=== PATIENT | female | born 1990 | race Caucasian/White ===

== ENCOUNTER 2024-05-26 01:09 | Emergency (ER) | payer MEDICAID, SELFPAY ==
[2024-05-26 01:23] VITALS: BP 126/75; PULSE 70; O2SAT 100
[2024-05-26 01:26] VITALS: BP 124/80; PULSE 83; RESP 16; TEMP 36.9; O2SAT 100; BMI 20.6
[2024-05-26 02:38] LABS: MANUAL DIFF FLAG NO
[2024-05-26 02:39] LABS: Basophils Percent Auto 0.2 % (0-2); Eosinophils Percent Auto 0.2 % (0-4); Hematocrit 38.7 % (37.0-47.0); Hemoglobin 13.2 g/dl (12.0-16.0); Imm Gran Abs Auto 0.03 X10*3/uL (0.00-0.03); Imm Gran Pct Auto 0.2 % (0.0-0.4); Lymphocytes Absolute Auto 1.9 X10*3/uL (1.2-4.9); Lymphocytes Percent Auto 14.7 % (20-40); Mean Corpuscular HGB Conc 34.1 g/dl (31.0-35.0); Mean Corpuscular Hemoglobin 31.4 pg (27.0-33.0); Mean Corpuscular Volume 91.9 fL (80.0-98.0); Mean Platelet Volume 9.2 fL (9.4-12.3); Monocytes Absolute Auto 0.8 X10*3/uL (0.1-1.2); Monocytes Percent Auto 6.4 % (2-11); Neutrophils Percent Auto 78.3 % (45-73); Platelet Count 261 X10*3/uL (160-400); Red Blood Count 4.21 X10*6/uL (4.20-5.50); Red Cell Distribution Width 14.6 % (11.0-16.0); White Blood Count 12.7 X10*3/uL (4.8-10.8)
[2024-05-26 02:52] LABS: Anion Gap 16 (12-20); Blood Urea Nitrogen 13 mg/dL (9-16); Calcium 9.9 mg/dL (8.4-10.2); Carbon Dioxide 25 mmol/L (22-29); Chloride 104 mmol/L (96-108); Creatinine Clr Calc Pharmacy 75.7; Estimated Glomerular Filt Rate > 60; Glucose Random 136 mg/dL (60-115); Potassium 3.8 mmol/L (3.3-5.1); Sodium 141 mmol/L (135-145)
--- NOTE | 2024-05-26 04:10 | ED_ITS ---
HPI - Psych General Chief Complaint: General Medical Stated Complaint: Dischagred from [facility] wants refill on med Time Seen by Provider: 05/26/24 04:01 Source: patient, EMS and old records reviewed Mode of arrival: EMS Limitations: other (poor historian) History of Present Illness ED Provider: ALFONZO HPI Narrative: 33 you female who reports hx of memory issues due to prior CVA, HTN, mental health issues was just treated and released from [facility] and states she was transported to the living room. She had to leave in the AM and then has nowhere to go doesn't know where she is. I am from far away. She denies SI/HI. But states she is unsafe. MD complaint: feels depressed and anxiety Onset (ago): day(s) (1) Duration: constant History of same: Yes Relieving factors: none Exacerbating factors: other Context: significant life stressor Associated psychiatric symptoms: depression Associated symptoms: denies other symptoms Treatments prior to arrival: none Related Data Allergies Allergy/AdvReac Type Severity Reaction Status Date / Time lamotrigine [From Lamictal] Allergy Rash Verified 05/26/24 01:35 promethazine [From Phenergan] Allergy Hives Verified 05/26/24 01:35 Sulfa (Sulfonamide Allergy Hives Verified 05/26/24 01:35 Antibiotics) Review of Systems 2 Review of Systems: Constitutional : No Fever, No Chills ENT/Mouth : No Ear Pain, No Nasal Congestion, No sore throat Eyes: No Eye Pain, No Swelling, No Redness Cardiovascular : No Chest Pain, No SOB Respiratory : No Cough, No Sputum, No Dyspnea Gastrointestinal : No Nausea, No Vomiting, No Diarrhea, No Hematochezia, No Melena Genitourinary : No Dysuria, No Urinary Frequency, No Hematuria Musculoskeletal : No Myalgias Skin : No Skin Lesions, No rash Neuro : No Weakness, No Numbness, No Paresthesias, No Dizziness, No Headache Psych : positive Anxiety, positive Depression, no SI/HI All other systems reviewed and are negative [facility] Past Medical History Attestation statement: The following information was validated with the patient. Medical History Depression Anxiety HTN (hypertension) Social History Social History (Updated 05/26/24 @ 05:32 by Aleta Jacob DO) Patient Tobacco Use Status: Current someday Tobacco user Smoked in Last 30 Days: Yes Use of substances other than those prescribed or required for medical reasons: Yes Substance Use Type: Crack/Cocaine and Marijuana Advance Directives: No Advance Directives Information Provided: Yes Do you have a plan to hurt others: No Plan Patient : No Physical Exam 2 Vital Signs: Vital Signs: Last Vital Signs Temp 98.1 F 05/26/24 06:19 Pulse 80 05/26/24 06:19 Resp 18 05/26/24 06:19 BP 115/64 05/26/24 06:19 Pulse Ox 98 05/26/24 06:19 O2 Del Method Room Air 05/26/24 06:19 BMI result Body Mass Index 20.6 Appearance: Alert. Oriented X3. No acute distress. Eyes: Pupils equal, round and reactive to light. ENT: Pharynx normal. Neck: Normal inspection. Neck supple. CVS: Normal heart rate and rhythm. Pulses normal. Respiratory: No respiratory distress. Breath sounds normal. Abdomen: Soft and nontender. Skin: Skin warm and dry. Normal skin color. Normal skin turgor. Extremities: No lower extremity edema. No calf ttp Neuro: Oriented X 3. No motor deficit. No sensory deficit. CN2-12 intact Medications Administered Discontinued Medications Generic Name Dose Route Start Last Admin Trade Name Jonah PRN Reason Stop Dose Admin Acetaminophen 975 mg 05/26/24 10:47 05/26/24 11:10 Acetaminophen 325 Mg Tablet PO 05/26/24 10:48 975 mg ONCE ONE Administration Nicotine 14 mg 05/26/24 07:16 05/26/24 07:26 Nicotine 14 Mg Patch.Td24 TRANSDERMA 05/26/24 07:17 14 mg ONCE ONE Administration Medical Decision Making Medical Decision Making MDM Narrative: 33 you female who reports hx of memory issues due to prior CVA, HTN, mental health issues here with c/o unsafe DC from [facility]. At this time the patient denies any medical complaints will need labs, CARE team consult - she is voluntary Differential Diagnosis Differential Diagnoses: The differential diagnosis associated with the presentation includes homelessness, drug use, unsafe dc planning form prior facility Admission/Observation Consideration of admission/observation: Escalation of care including admission/observation considered physician observation started at 530am pending CARE team observation care revealed that the patient does meet psychiatric necessity for hospitalization. final disposition discussed with the patient. The patient completed observation care at 1238pm to go back to [facility] Healthcare Provider Management of the patient was discussed with: Behavioral Health Provider Lab Data [facility] Lab Attestation statement: I reviewed the patient's lab results. 05/26/24 02:35 05/26/24 02:35 Labs: Lab Results 05/26/24 05/26/24 05/26/24 Range/Units 02:35 06:14 06:15 WBC 12.7 H (4.8-10.8) X10*3/uL RBC 4.21 (4.20-5.50) X10*6/uL Hgb 13.2 (12.0-16.0) g/dl Hct 38.7 (37.0-47.0) % MCV 91.9 (80.0-98.0) fL MCH 31.4 (27.0-33.0) pg MCHC 34.1 (31.0-35.0) g/dl RDW 14.6 (11.0-16.0) % Plt Count 261 (160-400) X10*3/uL MPV 9.2 L (9.4-12.3) fL Immature Gran % (Auto) 0.2 (0.0-0.4) % Neut % (Auto) 78.3 H (45-73) % Lymph % (Auto) 14.7 L (20-40) % [place] % (Auto) 6.4 (2-11) % Eos % (Auto) 0.2 (0-4) % Baso % (Auto) 0.2 (0-2) % Lymph # (Auto) 1.9 (1.2-4.9) X10*3/uL [place] # (Auto) 0.8 (0.1-1.2) X10*3/uL Eos # (Auto) 0.0 (0.0-0.4) X10*3/uL Baso # (Auto) 0.0 (0.0-0.2) X10*3/uL Abs Immat Gran (auto) 0.03 (0.00-0.03) X10*3/uL Absolute Neuts (auto) 10.0 H (2.0-8.3) x10*3/uL Absolute Nucleated RBC 0.000 (0.0-0.012) X10*3/uL Nucleated RBC % (auto) 0.0 (0.0-0.2) /100WBC Sodium 141 (135-145) mmol/L Potassium 3.8 (3.3-5.1) mmol/L Chloride 104 (96-108) mmol/L Carbon Dioxide 25 (22-29) mmol/L Anion Gap 16 (12-20) BUN 13 (9-16) mg/dL Creatinine 0.67 (0.5-1.4) mg/dL Estim Creat Clear Calc 75.7 Estimated GFR > 60 Random Glucose 136 H (60-115) mg/dL Calcium 9.9 (8.4-10.2) mg/dL Total Bilirubin 0.4 (0.0-1.0) mg/dL Direct Bilirubin 0.1 (0.0-0.5) mg/dL AST 24 (5-31) U/L ALT 31 (0-31) U/L Alkaline Phosphatase 76 (39-117) U/L Total Protein 7.4 (6.5-8.0) g/dL Albumin 4.6 (3.5-5.0) g/dL Urine Color Yellow Urine Appearance Cloudy Urine pH 5.5 (5.0-9.0) Ur Specific [place] >= 1.030 H (1.005-1.025) Urine Protein Trace (Neg-Trace) mg/dL Urine Glucose (UA) Negative (Negative) mg/dL Urine Ketones Trace (Negative) mg/dL Urine Blood Moderate (2+) H (Negative) Urine Nitrite Negative (Negative) Ur Leukocyte Esterase Trace H (Negative) Urine RBC 11-20 H (0-2) /HPF Urine WBC 6-10 H (0-5) /HPF Ur Squamous Epith Cells >20 (0-2) /HPF Urine Bacteria 1+ (None Seen) Hyaline Casts 0-2 (0-2) /LPF Urine Test NEGATIVE (NEGATIVE) Urine Opiates Screen Not Detected (Not Detect) Ur Buprenorphine Scrn Not Detected (Not Detect) ng/mL Ur Oxycodone Screen Not Detected (Not Detect) ng/mL Urine Methadone Screen Not Detected (Not Detect) ng/mL Urine Fentanyl Screen Not Detected (Not Detect) Ur Barbiturates Screen Not Detected (Not Detect) Ur Phencyclidine Scrn Not Detected (Not Detect) Ur Amphetamines Screen Not Detected (Not Detect) U Benzodiazepines Scrn POSITIVE H (Not Detect) Urine Cocaine Screen POSITIVE H (Not Detect) U Marijuana (THC) Screen POSITIVE H (Not Detect) Ethyl Alcohol < 10 mg/dL Discharge Plan Discharge Clinical Impression: Anxiety Patient Disposition: Xfer Psychiatric Hosp Transfer Details: [facility] Instructions: Anxiety (ED) Additional Instructions: please follow up with outpatient care as planned return for any worsening symptoms or concerns. Print Language: German
[2024-05-26 04:47] LABS: Alanine Aminotransferase 31 U/L (0-31); Albumin Level 4.6 g/dL (3.5-5.0); Alkaline Phosphatase 76 U/L (39-117); Aspartate Amino Transferase 24 U/L (5-31); Bilirubin Direct 0.1 mg/dL (0.0-0.5); Bilirubin Total 0.4 mg/dL (0.0-1.0); Ethanol < 10 mg/dL; Total Protein 7.4 g/dL (6.5-8.0)
--- NOTE | 2024-05-26 06:04 | PC.NURSE ---
Pt denies SI/HI. Pt changed over to hospital attire. Belongings in shelf 2.
[2024-05-26 06:19] VITALS: BP 115/64; PULSE 80; RESP 18; TEMP 36.7; O2SAT 98
--- NOTE | 2024-05-26 06:19 | MHC.EDTECH ---
Patient was changed into hospital attire,belongings list completed,copy placed in chart,security at bedside,all belongings locked in the closet on shelf 2,patient ambulated with a steady gait to the bathroom,urine sample collected and sent to lab.
[2024-05-26 06:21] LABS: Appearance Urine Cloudy; Color Urine Yellow; Glucose Urine UA Negative (Negative); Leukocyte Esterase Urine Trace (Negative); Nitrite Urine Negative (Negative); PH 5.5 (5.0-9.0); Specific Gravity - Urine >= 1.030 (1.005-1.025); UMIC TRIGGER UACC YES; Urine Blood Moderate (2+) (Negative); Urine Ketones Trace mg/dL (Negative); Urine Protein Trace mg/dL (Neg-Trace)
[2024-05-26 06:26] LABS: Bacteria Urine 1+ (None Seen); Hyaline Casts Urine 0-2 /LPF (0-2); Squamous Epithelial Cell Urine >20 /HPF (0-2); UACC Culture Trigger YES
[2024-05-26 06:27] LABS: UPreg QC Valid YES; Urine Pregnancy NEGATIVE (NEGATIVE)
[2024-05-26 06:31] LABS: Amphetamine Screen Urine Not Detected (Not Detect); Barbiturates, Urine Not Detected (Not Detect); Benzodiazepines Screen Urine POSITIVE (Not Detect); Buprenorphine Scr Not Detected (Not Detect); Cannabinoid Screen Urine POSITIVE (Not Detect); Cocaine Screen Urine POSITIVE (Not Detect); Fentanyl, urine Not Detected (Not Detect); Methadone Screen, Urine Not Detected (Not Detect); Opiate Screen Urine Not Detected (Not Detect); Oxycodone Screen Urine Not Detected (Not Detect); Phencyclidine Screen Urine Not Detected (Not Detect)
[2024-05-26] MEDS: Nicotine 14 MG PATCH.TD24 TRANSDERMA (07:26)
--- NOTE | 2024-05-26 07:28 | PC.NURSE ---
provider originally ordered 21mg nicotine via transdermal. pt originally refused stating, I can't take this - it's too much and i'm going to overdose. when asking pt how much she smokes per day, she states, it depends on the day. provider notified/aware. 14mg patch applied to RUE. pt otherwise continues to rest in no apparent distress. waiting on CARE team consult. no sob/wob noted. respirations even/unlabored. plan of care ongoing.
--- NOTE | 2024-05-26 09:09 | PC.NURSE ---
pt speaking w/ care team at this time.
--- NOTE | 2024-05-26 10:00 | MHC.EDTECH ---
this tech assumed care of pt at 0700, pt was provided a tray with food, pt ate 100% and is resting comfortably, no apparent distress at this time
--- NOTE | 2024-05-26 10:02 | PC.NURSE ---
report given to FABRICIO Jimenez at [facility] at this time. pt notified/aware of plan of care. ETA for transportation unknown.
[2024-05-26] MEDS: Acetaminophen 325 MG TABLET 975 MG PO (11:10)
--- NOTE | 2024-05-26 11:13 | PC.NURSE ---
pt c/o generalized LLE pain at this time - requesting tylenol. pt medicated per provider order. effectiveness pending.
[2024-05-26] MEDS: Nicotine Polacrilex 2 MG GUM BUCCAL ×2 (13:15→15:23)
--- NOTE | 2024-05-26 13:38 | MHC.CARE ---
Addendum entered by Viviane Decker 05/26/24 13:42: The accepting provider is Dr. Blackburn. Original Note: Pt was accepted to [facility] for today 05/26/24. ETA is JIMENEZ. The accepting provider is Dr. Remedios Kaufman and the address is [address] [place] [address]. Nurse to nurse was already complete. ED RN and CARE team have been notified of placement.
[2024-05-26 14:46] VITALS: BP 113/74; PULSE 76; RESP 18; TEMP 36.7; O2SAT 100
--- NOTE | 2024-05-26 15:26 | PC.NURSE ---
pt requesting nicotine gum. prn medication utilized. pt continues to wait for transport via S to [facility] at this time. plan of care ongoing.
--- NOTE | 2024-05-26 16:19 | PC.NURSE ---
Assumed care of patient at 1600, patient appears to be in no apparent distress, calm and cooperative, ambulating around BH pod with steady gait. awaiting transport to [facility] at this time
[2024-05-26 16:53] VITALS: BP 102/74; PULSE 81; RESP 16; TEMP 36.4; O2SAT 96
== END 2024-05-26 16:54 ==
PROVIDERS: Emergency Provider Emergency Medicine
DX: F33.1 Major depressive disorder, recurrent, moderate (principal); F41.1 Generalized anxiety disorder; F43.0 Acute stress reaction; F17.210 Nicotine dependence, cigarettes, uncomplicated; I10 Essential (primary) hypertension; Z79.899 Other long term (current) drug therapy; Z51.81 Encounter for therapeutic drug level monitoring
CPT/HCPCS: 36415; 80048; 80076; 80307; 81001; 81025; 85025; 87086; 99285; S9485

== ENCOUNTER 2024-06-05 20:44 | Emergency (ER) | payer MEDICAID, SELFPAY ==
[2024-06-05 20:48] VITALS: BP 96/63; PULSE 82; PULSE 84; RESP 18; TEMP 36.3; O2SAT 98; BMI 19.6
[2024-06-05 20:59] VITALS: BP 96/63; PULSE 84; RESP 18; TEMP 36.3; O2SAT 98
--- NOTE | 2024-06-05 21:14 | ED.PSYCH ---
HPI - Psych General Chief Complaint: Psychiatric Symptoms Stated Complaint: SI Time Seen by Provider: 06/05/24 21:03 Source: patient and EMS Mode of arrival: EMS Limitations: no limitations History of Present Illness ED Provider: Dr. Patsy Babcock HPI Narrative: Patient comes to the emergency room complaining of suicidal thoughts. Patient states that she is homeless, has had auditory hallucinations for the patient. Patient was discharged from [facility] 1 week ago. Patient states that she has been off her medications since he was discharged from [facility], states that she went to last picker her medications at the pharmacy but they were not able to give it to her, seems that there some kind of insurance problem. According to EMS, the patient was found with another patient who is here for mental health, both were about to walk into oncoming traffic Related Data Home Medications ?Medication ?Instructions ?Recorded ?Confirmed clonazepam 0.5 mg tablet 0.5 mg PO 06/05/24 clonidine HCl 0.1 mg tablet 0.1 mg PO BID 06/05/24 06/05/24 oxcarbazepine 300 mg tablet 300 mg PO BID 06/05/24 06/05/24 quetiapine 300 mg tablet 300 mg PO BEDTIME 06/05/24 06/05/24 Allergies Allergy/AdvReac Type Severity Reaction Status Date / Time lamotrigine [From Lamictal] Allergy Rash Verified 06/05/24 20:58 promethazine [From Phenergan] Allergy Hives Verified 06/05/24 20:58 Sulfa (Sulfonamide Allergy Hives Verified 06/05/24 20:58 Antibiotics) Review of Systems Review of Systems: Constitutional : No Weight loss, No Fever, No Chills, No Night Sweats, No Fatigue, No Malaise ENT/Mouth : No Hearing loss, No Ear Pain, No Nasal Congestion, No Sinus Pain, No Hoarseness, No sore throat, No Rhinorrhea, No Swallowing Difficulty Eyes: No Eye Pain, No Swelling, No Redness, No Foreign Body, No Discharge, No Vision Changes Cardiovascular : No Chest Pain, No SOB, No Dyspnea on Exertion, No Orthopnea, No Edema, No Palpitations Respiratory : No Cough, No Sputum, No Wheezing, No Smoke Exposure, No Dyspnea Gastrointestinal : No Nausea, No Vomiting, No Diarrhea, No Constipation, No abdominal Pain, No Hematochezia, No Melena Genitourinary : no irregular bleeding, No Dysuria, No Urinary Frequency, No Hematuria, No Urinary Incontinence, No Urgency, No Flank Pain, No Urinary Flow Changes, No Hesitancy Musculoskeletal : No joint pain, No Myalgias, No Joint Swelling Skin : No Skin Lesions, No rash Neuro : No Weakness, No Numbness, No Paresthesias, No Loss of Consciousness, No Dizziness, No Headache Psych : No Anxiety/Panic, complaining of depression, suicide ideation, plan to walk into traffic, homeless Heme/Lymph: No Bruising, No Bleeding,No Lymphadenopathy Endocrine : No Polyuria, No Polydipsia, No Temperature Intolerance [facility] Past Medical History Medical History Depression Anxiety HTN (hypertension) Social History Social History (Updated 05/26/24 @ 05:32 by Aleta Jacob DO) Patient Tobacco Use Status: Current someday Tobacco user Smoked in Last 30 Days: Yes Use of substances other than those prescribed or required for medical reasons: No Substance Use Type: Marijuana Advance Directives: No Advance Directives Information Provided: No Do you have a plan to hurt others: No Plan Patient : No Physical Exam Vital Signs: Vital Signs: Last Vital Signs Temp 97.4 F 06/05/24 20:59 Pulse 84 06/05/24 20:59 Resp 18 06/05/24 20:59 BP 96/63 06/05/24 20:59 Pulse Ox 98 06/05/24 20:59 O2 Del Method Room Air 06/05/24 20:59 BMI result Body Mass Index 19.6 Const: Other: Appearance: Alert. Oriented X3. No acute distress. Eyes: Pupils equal, round and reactive to light. ENT: Pharynx normal. Neck: Normal inspection. Neck supple. No lymph nodes noted. No crepitus CVS: Normal heart rate and rhythm. Pulses normal. Normal S1 and S2 Respiratory: No respiratory distress. Breath sounds normal. No Wheezing. No rales Abdomen: Soft and nontender. No rigidity. No distention. Skin: Skin warm and dry. Normal skin color. Normal skin turgor. Extremities: No lower extremity edema. No Lacerations. No Rash Neuro: Oriented X 3. No motor deficit. No sensory deficit. Moving all extremities. No slurred speech. CN 2 through 12 grossly intact Psych: calm, cooperative, normal affect Medical Decision Making Medical Decision Making [facility] Narrative: my interpretation of labs: Normal hematology, chemistry shows a potassium 3.2, repleted p.o., normal LFTs. Urinalysis positive for blood, no UTI. ETOH negative - Patient remains on a Section 12 - care team consult pending Differential Diagnosis Differential Diagnoses: The differential diagnosis associated with the presentation includes Admission/Observation Consideration of admission/observation: Escalation of care including admission/observation considered ( patient is on a Section 12 waiting to be seen by the care team) Lab Data [facility] Lab Attestation statement: I reviewed the patient's lab results. 06/05/24 22:23 06/05/24 22:22 Labs: Lab Results 06/05/24 06/05/24 06/05/24 Range/Units 22:22 22:23 22:34 WBC 9.7 (4.8-10.8) X10*3/uL RBC 4.16 L (4.20-5.50) X10*6/uL Hgb 13.1 (12.0-16.0) g/dl Hct 39.5 (37.0-47.0) % MCV 95.0 (80.0-98.0) fL MCH 31.5 (27.0-33.0) pg MCHC 33.2 (31.0-35.0) g/dl RDW 14.5 (11.0-16.0) % Plt Count 296 (160-400) X10*3/uL MPV 9.6 (9.4-12.3) fL Immature Gran % (Auto) 0.3 (0.0-0.4) % Neut % (Auto) 58.8 (45-73) % Lymph % (Auto) 30.5 (20-40) % [place] % (Auto) 7.4 (2-11) % Eos % (Auto) 2.6 (0-4) % Baso % (Auto) 0.4 (0-2) % Lymph # (Auto) 3.0 (1.2-4.9) X10*3/uL [place] # (Auto) 0.7 (0.1-1.2) X10*3/uL Eos # (Auto) 0.3 (0.0-0.4) X10*3/uL Baso # (Auto) 0.0 (0.0-0.2) X10*3/uL Abs Immat Gran (auto) 0.03 (0.00-0.03) X10*3/uL Absolute Neuts (auto) 5.7 (2.0-8.3) x10*3/uL Absolute Nucleated RBC 0.000 (0.0-0.012) X10*3/uL Nucleated RBC % (auto) 0.0 (0.0-0.2) /100WBC Sodium 140 (135-145) mmol/L Potassium 3.2 L (3.3-5.1) mmol/L Chloride 102 (96-108) mmol/L Carbon Dioxide 28 (22-29) mmol/L Anion Gap 13 (12-20) BUN 9 (9-16) mg/dL Creatinine 0.65 (0.5-1.4) mg/dL Estim Creat Clear Calc 77.9 Estimated GFR > 60 Random Glucose 101 (60-115) mg/dL Calcium 9.5 (8.4-10.2) mg/dL Total Bilirubin 0.5 (0.0-1.0) mg/dL AST 39 H (5-31) U/L ALT 54 H (0-31) U/L Alkaline Phosphatase 70 (39-117) U/L Total Protein 7.3 (6.5-8.0) g/dL Albumin 4.5 (3.5-5.0) g/dL Urine Color Dark Yellow Urine Appearance Clear Urine pH 5.5 (5.0-9.0) Ur Specific [place] >= 1.030 H (1.005-1.025) Urine Protein Trace (Neg-Trace) mg/dL Urine Glucose (UA) Negative (Negative) mg/dL Urine Ketones Trace (Negative) mg/dL Urine Blood Small (1+) H (Negative) Urine Nitrite Negative (Negative) Ur Leukocyte Esterase Negative (Negative) Urine RBC 11-20 H (0-2) /HPF Urine WBC 0-5 (0-5) /HPF Ur Squamous Epith Cells 3-5 (0-2) /HPF Urine Bacteria Trace (None Seen) Hyaline Casts 0-2 (0-2) /LPF Urine Test NEGATIVE (NEGATIVE) Ethyl Alcohol < 10 mg/dL Critical Care Time Critical Care Time Critical Care Time: Yes Total Critical Care Time: 30 Attestation: I have personally provided critical care time. Time includes review of lab data, radiology results, discussion with consultants, and monitoring for potential decompensation. Intervention performed as documented. Discharge Plan Discharge Clinical Impression: Suicidal ideation Patient Disposition: Still a Patient Prescriptions: No Action clonidine HCl 0.1 mg tablet 0.1 mg PO BID quetiapine 300 mg tablet 300 mg PO BEDTIME clonazepam 0.5 mg tablet 0.5 mg PO oxcarbazepine 300 mg tablet 300 mg PO BID Interventions: [place]-Suicide Risk Severity Scale Last Done: 06/05/24 20:59 Print Language: Martiniquais
--- NOTE | 2024-06-05 21:21 | PC.NURSE ---
patient changed over into hospital attire, continuous 15 min checks initiated
--- NOTE | 2024-06-05 21:27 | PC.NURSE ---
Belongings placed on shelf 4 in [facility]
[2024-06-05 22:40] LABS: MANUAL DIFF FLAG NO
[2024-06-05 22:42] LABS: Basophils Percent Auto 0.4 % (0-2); Eosinophils Absolute Auto 0.3 X10*3/uL (0.0-0.4); Eosinophils Percent Auto 2.6 % (0-4); Hematocrit 39.5 % (37.0-47.0); Hemoglobin 13.1 g/dl (12.0-16.0); Imm Gran Abs Auto 0.03 X10*3/uL (0.00-0.03); Imm Gran Pct Auto 0.3 % (0.0-0.4); Lymphocytes Percent Auto 30.5 % (20-40); Mean Corpuscular HGB Conc 33.2 g/dl (31.0-35.0); Mean Corpuscular Hemoglobin 31.5 pg (27.0-33.0); Mean Platelet Volume 9.6 fL (9.4-12.3); Monocytes Absolute Auto 0.7 X10*3/uL (0.1-1.2); Monocytes Percent Auto 7.4 % (2-11); Neutrophils Absolute Auto 5.7 x10*3/uL (2.0-8.3); Neutrophils Percent Auto 58.8 % (45-73); Platelet Count 296 X10*3/uL (160-400); Red Blood Count 4.16 X10*6/uL (4.20-5.50); Red Cell Distribution Width 14.5 % (11.0-16.0); White Blood Count 9.7 X10*3/uL (4.8-10.8)
[2024-06-05 22:46] LABS: Appearance Urine Clear; Color Urine Dark Yellow; Glucose Urine UA Negative (Negative); Leukocyte Esterase Urine Negative (Negative); Nitrite Urine Negative (Negative); PH 5.5 (5.0-9.0); Specific Gravity - Urine >= 1.030 (1.005-1.025); UMIC TRIGGER UACC YES; Urine Blood Small (1+) (Negative); Urine Ketones Trace mg/dL (Negative); Urine Protein Trace mg/dL (Neg-Trace)
[2024-06-05 22:47] LABS: UPreg QC Valid YES; Urine Pregnancy NEGATIVE (NEGATIVE)
[2024-06-05 22:49] LABS: Bacteria Urine Trace (None Seen); Hyaline Casts Urine 0-2 /LPF (0-2); WBC Urine 0-5 /HPF (0-5)
[2024-06-05 22:56] LABS: Ethanol < 10 mg/dL
[2024-06-05 22:56] LABS: Alanine Aminotransferase 54 U/L (0-31); Albumin Level 4.5 g/dL (3.5-5.0); Alkaline Phosphatase 70 U/L (39-117); Anion Gap 13 (12-20); Aspartate Amino Transferase 39 U/L (5-31); Bilirubin Total 0.5 mg/dL (0.0-1.0); Blood Urea Nitrogen 9 mg/dL (9-16); Calcium 9.5 mg/dL (8.4-10.2); Carbon Dioxide 28 mmol/L (22-29); Chloride 102 mmol/L (96-108); Creatinine Clr Calc Pharmacy 77.9; Estimated Glomerular Filt Rate > 60; Glucose Random 101 mg/dL (60-115); Potassium 3.2 mmol/L (3.3-5.1); Sodium 140 mmol/L (135-145); Total Protein 7.3 g/dL (6.5-8.0)
[2024-06-05] MEDS: Potassium Chloride ER 20 MEQ TAB.ER.PRT PO (23:40)
--- NOTE | 2024-06-05 23:42 | PC.NURSE ---
medicated per mar.
[2024-06-06 00:25] LABS: Amphetamine Screen Urine Not Detected (Not Detect); Barbiturates, Urine Not Detected (Not Detect); Benzodiazepines Screen Urine Not Detected (Not Detect); Buprenorphine Scr Not Detected (Not Detect); Cannabinoid Screen Urine POSITIVE (Not Detect); Cocaine Screen Urine Not Detected (Not Detect); Fentanyl, urine Not Detected (Not Detect); Methadone Screen, Urine Not Detected (Not Detect); Opiate Screen Urine Not Detected (Not Detect); Oxycodone Screen Urine Not Detected (Not Detect); Phencyclidine Screen Urine Not Detected (Not Detect)
--- NOTE | 2024-06-06 00:29 | PC.NURSE ---
took over at 23:00 pt sleeping at this time.
[2024-06-06 04:28] VITALS: BP 90/60; PULSE 83; RESP 16; TEMP 36.3; O2SAT 100
--- NOTE | 2024-06-06 05:56 | PC.NURSE ---
pt sleeping no sign of distress during the night.
[2024-06-06] MEDS: Nicotine Polacrilex 2 MG GUM BUCCAL ×3 (06:35→13:13)
--- NOTE | 2024-06-06 06:36 | PC.NURSE ---
medicated per mar.
[2024-06-06 08:32] VITALS: BP 97/71; PULSE 98; RESP 18; TEMP 37.1; O2SAT 98
[2024-06-06] MEDS: clonazePAM 0.5 MG TABLET PO (09:09)
[2024-06-06] MEDS: OXcarbazepine 300 MG TABLET PO (09:09)
--- NOTE | 2024-06-06 11:39 | MHC.CARE ---
Addendum entered by Gosia Beebe 06/06/24 12:25: T/w spoke with Sarah at [facility] who stated the ETA is JIMENEZ. RN and community manager notified through tiger text. Addendum entered by Gosia Beebe 06/06/24 11:46: RN May called to do a N2N for 8 Alesha Francois transferred the call to FABRICIO Gomez in the BH Pod. Addendum entered by Gosia Beebe 06/06/24 11:43: The address for [facility] is [address] [place] [address] [place] [address] Original Note: Per Veronica at [facility], Alesha has been accepted to [facility] for today. Dr Alvarez is the accepting, They will call for the N2N and ETA will be arranged at that time.
[2024-06-06 13:55] VITALS: BP 97/71; PULSE 98; RESP 18; TEMP 37.1; O2SAT 98
== END 2024-06-06 13:57 ==
PROVIDERS: Emergency Medicine; Emergency Provider Emergency Medicine Emergency Medical Services
DX: R44.0 Auditory hallucinations (principal); R45.851 Suicidal ideations; F17.210 Nicotine dependence, cigarettes, uncomplicated; Z51.81 Encounter for therapeutic drug level monitoring; Z79.899 Other long term (current) drug therapy; Z59.00 Homelessness unspecified
CPT/HCPCS: 36415; 80053; 80307; 81001; 81025; 85025; 99285; S9485